=== PATIENT | male | born 1935 | race American Indian/Alaskan Native ===

== ENCOUNTER 2019-08-05 18:21 | Emergency (ER) | payer MEDICARE ==
--- NOTE | 2019-08-05 18:49 | Emergency Department Report ---
Blank Doc - Documentation Documentation: 83-year-old male that presents with SOB and CP. This initial assessment/diagnostic orders/clinical plan/treatment(s) is/are subject to change based on patient's health status, clinical progression and re- assessment by fellow clinical providers in the ED. Further treatment and workup at subsequent clinical providers discretion. Patient/guardians urged not to elope from the ED as their condition may be serious if not clinically assessed and managed. Initial orders include: 1- Patient sent to MAIN ED for further evaluation and treatment 2- labs 3- EKG 4- CXR
--- NOTE | 2019-08-05 19:48 | XRay Report ---
CHEST PA AND LATERAL VIEWS INDICATION: Chest Pain. COMPARISON: None FINDINGS: Support devices: None Heart: Normal Lungs/Pleura: Lungs are hyperinflated, consistent with emphysema. Mild parenchymal scarring but no ac darrell superimposed disease. No pleural fluid. IMPRESSION: 1. Chronic lung disease but no acute superimposed disease. Signer Name: Santiago Riley MD Signed: 08/05/2019 7:44 PM Workstation Name: [id number]
[2019-08-05 20:03] LABS: Basophils % (Auto) 0.9 % (0.0-1.8); Eosinophils # (Auto) 0.1 K/mm3 (0.0-0.4); Hemoglobin 13.2 gm/dl (11.8-15.2); Lymphocytes # (Auto) 0.7 K/mm3 (1.2-5.4); Lymphocytes % (Auto) 29.3 % (13.4-35.0); Mean Corpuscular HGB Conc 34 % (32-34); Mean Corpuscular Volume 86 fl (84-94); Monocytes # (Auto) 0.3 K/mm3 (0.0-0.8); Monocytes % (Auto) 13.4 % (0.0-7.3); Platelet Count 193 K/mm3 (140-440); Red Blood Count 4.54 M/mm3 (3.65-5.03); Red Cell Distribution Width 14.8 % (13.2-15.2)
[2019-08-05 20:07] LABS: Alanine Aminotransferase 10 units/L (7-56); BUN/Creatinine Ratio 19; Blood Urea Nitrogen 13 mg/dL (9-20); Calcium 9.3 mg/dL (8.4-10.2); Hemolysis Index 8
[2019-08-05] MEDS ORDERED: IPRATROPIUM/ALBUTEROL SULFATE 3 ML AMPUL.NEB IH ONE (20:23)
[2019-08-05 20:24] LABS: INR 0.96 (0.87-1.13)
[2019-08-05 20:25] LABS: Partial Thromboplastin Time 31.3 Sec. (24.2-36.6)
[2019-08-05] MEDS ORDERED: POTASSIUM CHLORIDE ER 20 MEQ TAB PO ONE (20:35)
--- NOTE | 2019-08-05 20:35 | Emergency Department Report ---
ED Shortness of Breath HPI - General Chief Complaint: Dyspnea/Respdistress Stated Complaint: COPD Time Seen by Provider: 08/05/19 18:48 Source: patient, family Mode of arrival: Ambulatory Limitations: No Limitations - History of Present Illness Initial Comments: 83-year-old male the past medical history of COPD not on home oxygen, hypertension, prostate cancer currently in remission presents to the hospital complaining of shortness breath or chest pain. Patient is recently prescribed a nebulizer machine but his doctor forgot to prescribed the bronchodilators as well. She has chronic progressive memory problems and is currently being evaluated for possible dementia. Patient is oriented to self, place, but not to year. He states he feels fine now. His daughter says that prior to arrival he complained of shortness of breath and some chest pain which have both since resolved. Patient also has had increased urinary frequency for the past 3 days without dysuria or pain. PMD: Dr. Alina Maza - Related Data Previous Rx's Medication Instructions Recorded Last Taken Type ALBUTEROL Inhaler (OR & NICU) 2 puff IH QID PRN #8.5 gram 08/05/19 Unknown Rx [ProAir HFA Inhaler] ALBUTEROL NEB's [Proventil 0.083% 2.5 mg IH TID PRN #30 neb 08/05/19 Unknown Rx NEBS] Inhaler, Assist Devices [Space 1 each MC PRN PRN #1 spacer 08/05/19 Unknown Rx Chamber Plus] Ipratropium (Nf) [Atrovent] 2 puff IH Q6HR #1 inha 08/05/19 Unknown Rx Allergies Allergy/AdvReac Type Severity Reaction Status Date / Time Penicillins AdvReac Unknown Verified 08/05/19 18:25 ED Review of Systems ROS: Stated complaint: COPD Other details as noted in HPI Comment: All other systems reviewed and negative ED Past Medical Hx - Past Medical History Hx Hypertension: Yes Hx of Cancer: Yes (PROSTATE) Hx COPD: Yes - Surgical History Additional Surgical History: PROSTATE - Social History Smoking Status: Former Smoker Substance Use Type: None - Medications Home Medications: Home Medications Medication Instructions Recorded Confirmed Last Taken Type ALBUTEROL Inhaler (OR & NICU) 2 puff IH QID PRN #8.5 gram 08/05/19 Unknown Rx [ProAir HFA Inhaler] ALBUTEROL NEB's [Proventil 0.083% 2.5 mg IH TID PRN #30 neb 08/05/19 Unknown Rx NEBS] Inhaler, Assist Devices [Space 1 each MC PRN PRN #1 spacer 08/05/19 Unknown Rx Chamber Plus] Ipratropium (Nf) [Atrovent] 2 puff IH Q6HR #1 inha 08/05/19 Unknown Rx ED Physical Exam - General Limitations: No Limitations - Other Other exam information: General: No acute distress Head: Atraumatic Eyes: normal appearance ENT: Moist mucous membranes Neck: Normal appearance, no midline tenderness Chest: Clear to auscultation bilaterally CV: Regular rate and rhythm Abdomen: Soft, normal bowel sounds, nontender, nondistended, no rebound or guarding Back: Normal inspection Extremity: Normal inspection infection, full range of motion, mild lower e xtremity edema Neuro: Alert O x 3, no facial asymmetry, speech clear, no gross motor sensory deficit Psych: Appropriate behavior Skin: No rash ED Course Vital Signs 08/05/19 08/05/19 08/05/19 18:38 20:30 20:42 Temperature 98.2 F 97.7 F Pulse Rate 93 H 87 Pulse Rate [ 95 H Bilateral Throughout] Respiratory 16 26 H Rate Respiratory 20 Rate [Bilateral Throughout] Blood Pressure 147/94 131/80 Blood Pressure 148/60 [Left] O2 Sat by Pulse 97 98 Oximetry 08/05/19 08/05/19 08/05/19 21:00 21:31 22:00 Temperature Pulse Rate 83 88 74 Pulse Rate [ Bilateral Throughout] Respiratory 17 19 16 Rate Respiratory Rate [Bilateral Throughout] Blood Pressure 145/70 152/74 141/69 Blood Pressure [Left] O2 Sat by Pulse 100 Oximetry 08/05/19 22:31 Temperature Pulse Rate 71 Pulse Rate [ Bilateral Throughout] Respiratory 15 Rate Respiratory Rate [Bilateral Throughout] Blood Pressure 120/60 Blood Pressure [Left] O2 Sat by Pulse Oximetry ED Medical Decision Making - Lab Data Result diagrams: 08/05/19 19:31 08/05/19 19:31 Lab Results 08/05/19 08/05/19 08/05/19 Range/Units 19:31 19:31 19:31 WBC 2.5 L (4.5-11.0) K/mm3 RBC 4.54 (3.65-5.03) M/mm3 Hgb 13.2 (11.8-15.2) gm/dl Hct 39.0 (35.5-45.6) % MCV 86 (84-94) fl MCH 29 (28-32) pg MCHC 34 (32-34) % RDW 14.8 (13.2-15.2) % Plt Count 193 (140-440) K/mm3 Lymph % (Auto) 29.3 (13.4-35.0) % Trinity % (Auto) 13.4 H (0.0-7.3) % Eos % (Auto) 5.0 H (0.0-4.3) % Baso % (Auto) 0.9 (0.0-1.8) % Lymph # 0.7 L (1.2-5.4) K/mm3 Trinity # 0.3 (0.0-0.8) K/mm3 Eos # 0.1 (0.0-0.4) K/mm3 Baso # 0.0 (0.0-0.1) K/mm3 Seg Neutrophils % 51.4 (40.0-70.0) % Seg Neutrophils # 1.3 L (1.8-7.7) K/mm3 PT 12.9 (12.2-14.9) Sec. INR 0.96 (0.87-1.13) APTT 31.3 (24.2-36.6) Sec. Sodium 139 (137-145) mmol/L Potassium 3.5 L (3.6-5.0) mmol/L Chloride 99.5 (98-107) mmol/L Carbon Dioxide 26 (22-30) mmol/L Anion Gap 17 mmol/L BUN 13 (9-20) mg/dL Creatinine 0.7 L (0.8-1.5) mg/dL Estimated GFR > 60 ml/min BUN/Creatinine Ratio 19 % Glucose 99 (75-100) mg/dL Calcium 9.3 (8.4-10.2) mg/dL Total Bilirubin 0.60 (0.1-1.2) mg/dL AST 21 (5-40) units/L ALT 10 (7-56) units/L Alkaline Phosphatase 57 (35-129) units/L Troponin T < 0.010 (0.00-0.029) ng/mL Total Protein 7.4 (6.3-8.2) g/dL Albumin 4.0 (3.9-5) g/dL Albumin/Globulin Ratio 1.2 % Urine Color (Yellow) Urine Turbidity (Clear) Urine pH (5.0-7.0) Ur Specific [place] (1.003-1.030) Urine Protein (Negative) mg/dL Urine Glucose (UA) (Negative) mg/dL Urine Ketones (Negative) mg/dL Urine Blood (Negative) Urine Nitrite (Negative) Urine Bilirubin (Negative) Urine Urobilinogen (<2.0) mg/dL Ur Leukocyte Esterase (Negative) Urine WBC (Auto) (0.0-6.0) /HPF Urine RBC (Auto) (0.0-6.0) /HPF U Epithel Cells (Auto) (0-13.0) /HPF Urine Mucus /HPF 08/05/19 08/05/19 Range/Units 20:29 21:21 WBC (4.5-11.0) K/mm3 RBC (3.65-5.03) M/mm3 Hgb (11.8-15.2) gm/dl Hct (35.5-45.6) % MCV (84-94) fl MCH (28-32) pg MCHC (32-34) % RDW (13.2-15.2) % Plt Count (140-440) K/mm3 Lymph % (Auto) (13.4-35.0) % Trinity % (Auto) (0.0-7.3) % Eos % (Auto) (0.0-4.3) % Baso % (Auto) (0.0-1.8) % Lymph # (1.2-5.4) K/mm3 Trinity # (0.0-0.8) K/mm3 Eos # (0.0-0.4) K/mm3 Baso # (0.0-0.1) K/mm3 Seg Neutrophils % (40.0-70.0) % Seg Neutrophils # (1.8-7.7) K/mm3 PT (12.2-14.9) Sec. INR (0.87-1.13) APTT (24.2-36.6) Sec. Sodium (137-145) mmol/L Potassium (3.6-5.0) mmol/L Chloride (98-107) mmol/L Carbon Dioxide (22-30) mmol/L Anion Gap mmol/L BUN (9-20) mg/dL Creatinine (0.8-1.5) mg/dL Estimated GFR ml/min BUN/Creatinine Ratio % Glucose (75-100) mg/dL Calcium (8.4-10.2) mg/dL Total Bilirubin (0.1-1.2) mg/dL AST (5-40) units/L ALT (7-56) units/L Alkaline Phosphatase (35-129) units/L Troponin T < 0.010 (0.00-0.029) ng/mL Total Protein (6.3-8.2) g/dL Albumin (3.9-5) g/dL Albumin/Globulin Ratio % Urine Color Yellow (Yellow) Urine Turbidity Clear (Clear) Urine pH 5.0 (5.0-7.0) Ur Specific [place] 1.016 (1.003-1.030) Urine Protein 30 mg/dl (Negative) mg/dL Urine Glucose (UA) Neg (Negative) mg/dL Urine Ketones Neg (Negative) mg/dL Urine Blood Lg (Negative) Urine Nitrite Neg (Negative) Urine Bilirubin Neg (Negative) Urine Urobilinogen < 2.0 (<2.0) mg/dL Ur Leukocyte Esterase Neg (Negative) Urine WBC (Auto) 2.0 (0.0-6.0) /HPF Urine RBC (Auto) 11.0 (0.0-6.0) /HPF U Epithel Cells (Auto) 1.0 (0-13.0) /HPF Urine Mucus Few /HPF - EKG Data -: EKG Interpreted by [facility] EKG shows normal: sinus rhythm, ST-T waves (no stemi) Rate: normal (99) - EKG Data 08/05/19 21:18 repeat ekg no acute changes - Radiology Data Radiology results: report reviewed CHEST PA AND LATERAL VIEWS INDICATION: Chest Pain. COMPARISON: None FINDINGS: Support devices: None Heart: Normal Lungs/Pleura: Lungs are hyperinflated, consistent with emphysema. Mild parenchymal scarring but no acute superimposed disease. No pleural fluid. IMPRESSION: 1. Chronic lung disease but no acute superimposed disease. - Medical Decision Making Patient has been pain-free during his entire ED stay. Troponin negative 2 with unchanged EKG. Patient did receive 1 duoneb while in the department. during observation. Patient is asymptomatic. - Differential Diagnosis CBD, AR, pneumonia, pneumothorax Critical Care Time: No Critical care attestation.: If time is entered above; I have spent that time in minutes in the direct care of this critically ill patient, excluding procedure time. ED Disposition Clinical Impression: COPD with emphysema, Microscopic hematuria Disposition: TO HOME OR SELFCARE Is pt being admited?: No Condition: Stable Instructions: Emphysema (ED), Acute Hematuria (ED) Additional Instructions: Take the medication as prescribed. Follow-up with your doctor or doctor/clinic provided. Return if symptoms worsen as indicated by your discharge instructions. Take the copy of the results provided to your doctor for follow- up. Prescriptions: Ipratropium (Nf) [Atrovent] 2 puff IH Q6HR #1 inha ALBUTEROL Inhaler (OR & NICU) [ProAir HFA Inhaler] 2 puff IH QID PRN #8.5 gram PRN Reason: Shortness Of Breath ALBUTEROL NEB's [Proventil 0.083% NEBS] 2.5 mg IH TID PRN #30 neb PRN Reason: Wheezing Inhaler, Assist Devices [Space Chamber Plus] 1 each MC PRN PRN #1 spacer PRN Reason: Shortness Of Breath Referrals: your, doctor [Other] - 3-5 Days CHAYITO MONTALVO MD [Staff Physician] - 3-5 Days (urology) Time of Disposition: 22:59
[2019-08-05 20:45] LABS: Bilirubin,Urine NEG (Negative); Blood,Urine LG (Negative); Color,Urine Yellow (Yellow); Mucus,Urine FEW /HPF; Urobilinogen,Urine < 2.0 mg/dL (<2.0)
[2019-08-05 23:07] VITALS: BP 125/59
== END 2019-08-05 23:40 | disposition home or self-care (01) ==
LOC: ED 18:21
DX: J43.9 Emphysema, unspecified (principal); R31.29 Other microscopic hematuria; Z85.46 Personal history of malignant neoplasm of prostate; Z87.891 Personal history of nicotine dependence; Z79.899 Other long term (current) drug therapy; Z88.0 Allergy status to penicillin
CPT/HCPCS: 36415; 71046; 80053; 81001; 84484; 85025; 85610; 85730; 93005; 93010; 94640; 94644

== ENCOUNTER 2019-11-04 23:46 | Emergency (ER) | payer MEDICARE ==
[2019-11-05 01:26] LABS: Basophils % (Auto) 0.3 % (0.0-1.8); Eosinophils # (Auto) 0.1 K/mm3 (0.0-0.4); Eosinophils % (Auto) 4.3 % (0.0-4.3); Hemoglobin 12.9 gm/dl (11.8-15.2); Lymphocytes # (Auto) 0.8 K/mm3 (1.2-5.4); Mean Corpuscular HGB Conc 32 % (32-34); Mean Corpuscular Volume 88 fl (84-94); Monocytes # (Auto) 0.3 K/mm3 (0.0-0.8); Monocytes % (Auto) 10.4 % (0.0-7.3); Platelet Count 177 K/mm3 (140-440); Red Blood Count 4.54 M/mm3 (3.65-5.03); Red Cell Distribution Width 14.8 % (13.2-15.2)
[2019-11-05 01:48] LABS: Alanine Aminotransferase 17 units/L (7-56); Albumin 3.7 g/dL (3.9-5); BUN/Creatinine Ratio 20; Blood Urea Nitrogen 16 mg/dL (9-20); Calcium 9.3 mg/dL (8.4-10.2); Hemolysis Index 45
--- NOTE | 2019-11-05 03:15 | Emergency Department Report ---
ED Psych HPI - General Chief Complaint: Abdominal Pain Stated Complaint: MH EVALUATION Time Seen by Provider: 11/05/19 03:08 Source: patient, EMS Mode of arrival: Ambulatory Limitations: Altered Mental Status, Physical Limitation - History of Present Illness Initial Comments: Patient is an 84-year-old male that presents emergency room with complaints wa nting to be admitted. Patient states his niece is stealing from him. Patient states she is taking his money. Patient states that his is taking advantage of him. Patient states that people are out to get him. Patient denies abdominal pain. Patient states the only pain he is having is mental pain because he had to wait to be admitted into the hospital. Report received from EMS and EMS report states that the patient's daughter sent him here for a mental evaluation due to acting out and differently. Patient has a history of dementia. Patient is currently alert and oriented x3 -: Sudden Associated Psychiatric Symptoms: racing thoughts, delusions History of same: Yes Quality: constant Improves With: none Worsens With: none Associated Symptoms: denies other symptoms Treatments Prior to Arrival: none - Related Data Previous Rx's Medication Instructions Recorded Last Taken Type ALBUTEROL NEB's [Proventil 0.083% 2.5 mg IH TID PRN #30 neb 08/05/19 Unknown Rx NEBS] Albuterol INH(or & Nicu Only) 2 puff IH QID PRN #8.5 gram 08/05/19 Unknown Rx [ProAir HFA Inhaler] Inhaler, Assist Devices [Space 1 each MC PRN PRN #1 spacer 08/05/19 Unknown Rx Chamber Plus] Ipratropium (Nf) [Atrovent] 2 puff IH Q6HR #1 inha 08/05/19 Unknown Rx Allergies Allergy/AdvReac Type Severity Reaction Status Date / Time Penicillins AdvReac Unknown Verified 08/05/19 18:25 ED Review of Systems ROS: Stated complaint: MH EVALUATION Other details as noted in HPI Constitutional: denies: chills, fever Eyes: denies: eye pain, eye discharge, vision change ENT: denies: ear pain, throat pain Respiratory: denies: cough, shortness of breath, wheezing Cardiovascular: denies: chest pain, palpitations Endocrine: no symptoms reported Gastrointestinal: denies: abdominal pain, nausea, diarrhea Genitourinary: denies: urgency, dysuria Musculoskeletal: denies: back pain, joint swelling, arthralgia Skin: denies: rash, lesions Neurological: denies: headache, weakness, paresthesias Psychiatric: denies: anxiety, depression Hematological/Lymphatic: denies: easy bleeding, easy bruising ED Past Medical Hx - Past Medical History Previous Medical History?: Yes Hx Hypertension: Yes Hx COPD: Yes Hx Dementia: Yes - Surgical History Past Surgical History?: Yes Additional Surgical History: PROSTATE - Family History Family history: no significant - Social History Smoking Status: Never Smoker Substance Use Type: None - Medications Home Medications: Home Medications Medication Instructions Recorded Confirmed Last Taken Type ALBUTEROL NEB's [Proventil 0.083% 2.5 mg IH TID PRN #30 neb 08/05/19 Unknown Rx NEBS] Albuterol INH(or & Nicu Only) 2 puff IH QID PRN #8.5 gram 08/05/19 Unknown Rx [ProAir HFA Inhaler] Inhaler, Assist Devices [Space 1 each MC PRN PRN #1 spacer 08/05/19 Unknown Rx Chamber Plus] Ipratropium (Nf) [Atrovent] 2 puff IH Q6HR #1 inha 08/05/19 Unknown Rx ED Physical Exam - General Limitations: Altered Mental Status, Other General appearance: alert, in no apparent distress - Head Head exam: Present: atraumatic, normocephalic - Eye Eye exam: Present: normal appearance - ENT ENT exam: Present: mucous membranes moist - Neck Neck exam: Present: normal inspection - Respiratory Respiratory exam: Present: normal lung sounds bilaterally. Absent: respiratory distress - Cardiovascular Cardiovascular Exam: Present: regular rate, normal rhythm. Absent: systolic murmur, diastolic murmur, rubs, gallop - GI/Abdominal GI/Abdominal exam: Present: soft, normal bowel sounds - Rectal Rectal exam: Present: deferred - Extremities Exam Extremities exam: Present: normal inspection - Back Exam Back exam: Present: normal inspection - Neurological Exam Neurological exam: Present: alert, oriented X3 - Psychiatric Psychiatric exam: Present: flat affect - Expanded Psychiatric Exam Expanded Focused psych exam: Present: pressured speech, internal stimuli, delusional, paranoid - Skin Skin exam: Present: warm, dry, intact, normal color. Absent: rash ED Course Vital Signs 11/04/19 11/05/19 11/05/19 23:53 04:09 08:57 Temperature 97.9 F 98.5 F Pulse Rate 87 80 Respiratory 18 18 17 Rate Blood Pressure 142/74 Blood Pressure 125/58 [Left] O2 Sat by Pulse 98 99 Oximetry - Reevaluation(s) Reevaluation #1: I discussed all results and clinical findings with patient. I discussed plan of care with patient. Patient agrees with plan of care. Patient is stable for discharge to the [facility] once the patient is evaluated by the mental health team and mental health team has prepared admission into the [facility] 11/05/19 04:45 Reevaluation #2: Patient is very agitated and restless. Patient not able to be redirected. Patient will be given 10 mg of Geodon IM. 11/05/19 05:45 ED Medical Decision Making - Lab Data Result diagrams: 11/05/19 01:01 11/05/19 01:01 - Medical Decision Making Patient is a 84-year-old male that presents emergency room with complaints of needing to be admitted and possible acute psychosis. Patient on examination found to have delusions and paranoia. Patient denies any physical complaints. Patient's labs were done and were unremarkable. Patient is medically cleared. Patient towards the end of his ER stay became agitated and patient was given Geodon and responded well. Patient medically cleared and stable for admission into our geriatric psych floor. Patient was discharged from the ER and then acc epted directly into the geriatric psych floor. - Differential Diagnosis Acute psychosis, dementia with behavioral disorder, delusions, paranoia Critical care attestation.: If time is entered above; I have spent that time in minutes in the direct care of this critically ill patient, excluding procedure time. ED Disposition Clinical Impression: Agitation, Acute psychosis, Paranoia, Delusions Disposition: [id number] PSY HOSP/PSY UNIT Is pt being admited?: No Does the pt Need Aspirin: No Condition: Stable Additional Instructions: Patient to be discharged from the ER and patient to be directly admitted into the geriatric psych floor. Referrals: JOSE R BLANCO MD [Primary Care Provider] - 2-3 Days Time of Disposition: 05:48
[2019-11-05 05:21] LABS: Bilirubin,Urine NEG (Negative); Blood,Urine SM (Negative); Color,Urine Yellow (Yellow); Mucus,Urine FEW /HPF; Urobilinogen,Urine < 2.0 mg/dL (<2.0)
[2019-11-05] MEDS ORDERED: ZIPRASIDONE MESYLATE 20 MG VIAL IM ONE (05:44)
[2019-11-05 06:28] LABS: Amphetamine Screen,Urine PRESUMPTIVE NEGATIVE; Benzodiazepines Screen,Urine PRESUMPTIVE NEGATIVE; Cannabinoid Screen,Urine PRESUMPTIVE NEGATIVE; Cocaine Screen,Urine PRESUMPTIVE NEGATIVE; Methadone Screen,Urine PRESUMPTIVE NEGATIVE; Opiate Screen,Urine PRESUMPTIVE NEGATIVE
[2019-11-05 08:59] VITALS: BP 125/58
== END 2019-11-05 14:02 ==
LOC: ED 23:46
DX: F23 Brief psychotic disorder (principal); F22 Delusional disorders
CPT/HCPCS: 36415; 80053; 80307; 80320; 81001; 85025; 99284; G0480

== ENCOUNTER 2019-11-08 20:19 | Emergency (ER) | payer MEDICARE ==
[2019-11-08] MEDS ORDERED: ALBUTEROL 8.5 GM INHALATION IH PRN (21:39)
[2019-11-08] MEDS ORDERED: HALOPERIDOL LACTATE 5 MG/1 ML INJ IM PRN (21:40)
[2019-11-08] MEDS ORDERED: LORazepam 2 MG/ML VIAL IM PRN (21:40)
--- NOTE | 2019-11-08 21:42 | Emergency Department Report ---
ED General Adult HPI - General Chief complaint: Medical Clearance Stated complaint: DEMENTIA Time Seen by Provider: 11/08/19 21:05 Source: patient, family, EMS ( EMS documentation not available at time of chart dictation ), RN notes reviewed, old records reviewed Mode of arrival: Stretcher Limitations: Other (The patient is demented) - History of Present Illness Initial comments: The patient is an 84-year-old gentleman. The patient is not known to myself previously. The patient has no complaints at this time. History is obtained by speaking to his daughter, Ms. Reina Lobo; [phone] The patient is an 84-year-old gentleman with a history of COPD, and dementia. He was recently admitted to our fifth floor psychiatric unit for dementia with behavioral disturbances. He was discharged home. As per his daughter, he has been acting erratically, making comments about suicidality, running out, and she is not able to take care of him. There is no trauma that she is aware of, no fever, nausea, vomiting, urinary symptoms or new cough. The patient was medically cleared in this department a few days ago. The patient's daughter reports that initially she was not curious or interested in a assisted, but now she is interested in a assisted, because she cannot care for her father. The patient himself denies medical complaints and physical pain at this time. He does not make any comments about homicidality or suicidality or warning to overdose. -: days(s) Severity scale (0 -10): 0 Consistency: intermittent Improves with: none Worsens with: none - Related Data Home Medications Medication Instructions Recorded Confirmed Last Taken Amantadine 10 mg PO DAILY 11/06/19 11/06/19 1 Day Ago ~11/05/19 10 Dulcolax tab 100 mg PO DAILY 11/06/19 11/06/19 1 Day Ago ~11/05/19 100 mg Melatonin 3 mg PO QHS 11/06/19 11/06/19 1 Day Ago ~11/05/19 3 Spiriva Respimat 2.5 mg INNOSTRIL DAILY 11/06/19 11/06/19 1 Day Ago ~11/05/19 2.5 Symbicort 160-4.5 Mcg Inhaler 4.5 mcg INNOSTRIL BID 11/06/19 11/06/19 1 Day Ago ~11/05/19 2 puffs Vitamin E Cap 1,000 units PO DAILY MDD 1000 units 11/06/19 11/06/19 1 Day Ago ~11/05/19 1000 units Previous Rx's Medication Instructions Recorded Last Taken Type ALBUTEROL NEB's [Proventil 0.083% 2.5 mg IH TID PRN #30 neb 08/05/19 Unknown Rx NEBS] Albuterol INH(or & Nicu Only) 2 puff IH QID PRN #8.5 gram 08/05/19 Unknown Rx [ProAir HFA Inhaler] Inhaler, Assist Devices [Space 1 each MC PRN PRN #1 spacer 08/05/19 Unknown Rx Chamber Plus] Ipratropium (Nf) [Atrovent HFA 2 puff IH Q6HR #1 inha 08/05/19 Unknown Rx 17MCG/PUFF] Allergies Allergy/AdvReac Type Severity Reaction Status Date / Time Penicillins AdvReac Unknown Verified 08/05/19 18:25 ED Review of Systems ROS: Stated complaint: DEMENTIA Other details as noted in HPI Comment: As per daughter Constitutional: denies: fever Eyes: denies: vision change Respiratory: see HPI Cardiovascular: as per HPI. denies: syncope Gastrointestinal: as per HPI Genitourinary: as per HPI Musculoskeletal: as per HPI Skin: as per HPI Neurological: as per HPI Psychiatric: as per HPI Hematological/Lymphatic: as per HPI ED Past Medical Hx - Past Medical History Hx Hypertension: Yes Hx COPD: Yes Hx Dementia: Yes - Surgical History Additional Surgical History: PROSTATE - Social History Smoking Status: Never Smoker Substance Use Type: None - Medications Home Medications: Home Medications Medication Instructions Recorded Confirmed Last Taken Type ALBUTEROL NEB's [Proventil 0.083% 2.5 mg IH TID PRN #30 neb 08/05/19 11/08/19 Unknown Rx NEBS] Albuterol INH(or & Nicu Only) 2 puff IH QID PRN #8.5 gram 08/05/19 11/08/19 Unknown Rx [ProAir HFA Inhaler] Inhaler, Assist Devices [Space 1 each MC PRN PRN #1 spacer 08/05/19 11/08/19 Unknown Rx Chamber Plus] Ipratropium (Nf) [Atrovent HFA 2 puff IH Q6HR #1 inha 08/05/19 11/08/19 Unknown Rx 17MCG/PUFF] Amantadine 10 mg PO DAILY 11/06/19 11/06/19 1 Day Ago History ~11/05/19 10 Dulcolax tab 100 mg PO DAILY 11/06/19 11/06/19 1 Day Ago History ~11/05/19 100 mg Melatonin 3 mg PO QHS 11/06/19 11/06/19 1 Day Ago History ~11/05/19 3 Spiriva Respimat 2.5 mg INNOSTRIL DAILY 11/06/19 11/06/19 1 Day Ago History ~11/05/19 2.5 Symbicort 160-4.5 Mcg Inhaler 4.5 mcg INNOSTRIL BID 11/06/19 11/06/19 1 Day Ago History ~11/05/19 2 puffs Vitamin E Cap 1,000 units PO DAILY MDD 1000 units 11/06/19 11/06/19 1 Day Ago History ~11/05/19 1000 units ED Physical Exam - General Limitations: Other (The patient is demented. The patient is a poor historian) General appearance: alert, in no apparent distress - Head Head exam: Present: atraumatic, normocephalic - Eye Eye exam: Present: normal appearance, EOMI, other (Visual acuity is intact to finger counting at a close distance). Absent: nystagmus - ENT ENT exam: Present: normal exam, normal orophraynx, mucous membranes moist, normal external ear exam - Neck Neck exam: Present: normal inspection, full ROM. Absent: tenderness, meningismus - Respiratory Respiratory exam: Present: normal lung sounds bilaterally. Absent: respiratory distress - Cardiovascular Cardiovascular Exam: Present: regular rate, normal rhythm, normal heart sounds. Absent: bradycardia, tachycardia, irregular rhythm, systolic murmur, diastolic murmur, rubs, gallop - GI/Abdominal GI/Abdominal exam: Present: soft. Absent: distended, tenderness, guarding, rebound, rigid, pulsatile mass - Rectal Rectal exam: Present: deferred - Extremities Exam Extremities exam: Present: normal inspection, full ROM, other (2+ pulses noted in the bilateral upper and lower extremities. There is no palpable cord. negative Homans sign. Muscular compartments are soft. The pelvis is stable.). Absent: pedal edema, calf tenderness - Back Exam Back exam: Present: normal inspection, full ROM. Absent: tenderness, CVA tenderness (R), CVA tenderness (L), paraspinal tenderness, vertebral tenderness - Neurological Exam Neurological exam: Present: alert, other (There is no facial droop. The tongue is midline. Extraocular movements are intact bilaterally. There is 5 out of 5 strength in bilateral upper and lower extremities. Sensation is intact to light touch bilateral upper and lower extremities. ). Absent: motor sensory deficit - Psychiatric Psychiatric exam: Present: flat affect - Skin Skin exam: Present: warm, dry, intact, normal color. Absent: rash ED Course Vital Signs 11/08/19 11/08/19 11/09/19 20:47 22:23 07:30 Temperature 97.4 F L Pulse Rate 75 84 Respiratory 20 1 L 20 Rate Blood Pressure 115/62 132/69 [Left] O2 Sat by Pulse 97 95 Oximetry 11/09/19 12:30 Temperature 98.1 F Pulse Rate 84 Respiratory 20 Rate Blood Pressure 130/71 [Left] O2 Sat by Pulse 96 Oximetry - Reevaluation(s) Reevaluation #1: 11/08/19 21:51 Differential diagnosis, including but not limited to: Dementia, natural history of, medical clearance Assessment and plan: 84-year-old gentleman who is pleasant, calm and cooperative at this time, awake, protecting his airway, moving 4 extremities, with an unremarkable physical examination. He has not been physically agitated combative or belligerent and is made no complaints of homicidality or suicidality. Based off of the history obtained from his daughter, we suspect underlying dementia and natural history thereof. Appropriate screening laboratory studies, EKG, urinalysis, noncontrast CT scan of the brain will be obtained. A case management consultation and psychiatric consultation have also been requested. Explained risks of ER stay overnight to the patient's daughter, including severe illness and disease from coronavirus, and she verbalizes understanding. However, she reports that she has young children/grandchildren at home, and she is not able to care for young children at her father simultaneously. She therefore gives verbal informed consent for the patient to remain in the department overnight. Once initial diagnostics have resulted, if unremarkable, which we anticipate, will defer management to psychiatry and case management. The daughter also indicates that she is speaking to local nursing homes about placement and insurance options. Reevaluation #2: 11/09/19 18:59 Patient seen and cleared by psychiatry. Outpatient arrangements for follow-up have been made by case management. Family has endorsed to case management that they feel comfortable to take the patient home. Laboratory studies were unre markable, patient observed for 24 hours without clinical decompensation. ED Medical Decision Making - Lab Data Result diagrams: 11/08/19 21:22 11/08/19 21:22 Vital Signs 11/08/19 20:47 Temperature 97.4 F L Pulse Rate 75 Respiratory 20 Rate Blood Pressure 115/62 [Left] O2 Sat by Pulse 97 Oximetry Vital Signs 11/08/19 20:47 Temperature 97.4 F L Pulse Rate 75 Respiratory 20 Rate Blood Pressure 115/62 [Left] O2 Sat by Pulse 97 Oximetry Lab Results 11/08/19 11/08/19 Range/Units 21:22 21:22 WBC 4.0 L (4.5-11.0) K/mm3 RBC 4.15 (3.65-5.03) M/mm3 Hgb 11.9 (11.8-15.2) gm/dl Hct 36.5 (35.5-45.6) % MCV 88 (84-94) fl MCH 29 (28-32) pg MCHC 33 (32-34) % RDW 14.6 (13.2-15.2) % Plt Count 150 (140-440) K/mm3 Sodium 140 (137-145) mmol/L Potassium 3.9 (3.6-5.0) mmol/L Chloride 101.2 (98-107) mmol/L Carbon Dioxide 26 (22-30) mmol/L Anion Gap 17 mmol/L BUN 24 H (9-20) mg/dL Creatinine 1.0 (0.8-1.5) mg/dL Estimated GFR > 60 ml/min BUN/Creatinine Ratio 24 % Glucose 90 (75-100) mg/dL Calcium 9.2 (8.4-10.2) mg/dL - EKG Data -: EKG Interpreted by Sd EKG shows normal: sinus rhythm Rate: normal - EKG Data 11/08/19 21:50 No prior EKGs available for comparison. This is a sinus rhythm, 94 bpm, rightward axis deviation, atrial enlargement, low voltage in the high lateral leads, motion artifact, left ventricular hypertrophy, abnormal EKG, no endorsement of chest pain, the EKG is not consistent with a STEMI - Radiology Data Radiology results: pending, report reviewed, image reviewed interpreted by me: Noncontrast CT scan of the brain is grossly negative for acute pathology Noncontrast CT scan of the brain is negative for acute findings. Critical care attestation.: If time is entered above; I have spent that time in minutes in the direct care of this critically ill patient, excluding procedure time. ED Disposition Clinical Impression: Major neurocognitive disorder due to Alzheimer's disease, with behavioral disturbance Disposition: DC-01 TO HOME OR SELFCARE Is pt being admited?: No Does the pt Need Aspirin: No Condition: Stable Additional Instructions: Continue outpatient medications. Follow-up with the primary care doctor within the next 2 weeks. Return to the emergency room right away with new, worsened or different symptoms, or symptoms not present on the initial emergency room evaluation. Referrals: DONNA CARTWRIGHT MD [Primary Care Provider] - 3-5 Days
[2019-11-08] MEDS ORDERED: TIOTROPIUM InNostril SCH (21:45)
[2019-11-08 21:50] LABS: Hematocrit 36.5 % (35.5-45.6); Hemoglobin 11.9 gm/dl (11.8-15.2); Mean Corpuscular HGB Conc 33 % (32-34); Mean Corpuscular Volume 88 fl (84-94); Platelet Count 150 K/mm3 (140-440); Red Blood Count 4.15 M/mm3 (3.65-5.03); Red Cell Distribution Width 14.6 % (13.2-15.2)
[2019-11-08] MEDS ORDERED: ALBUTEROL 2.5 MG/3 ML NEBU IH PRN (21:58)
[2019-11-08] MEDS ORDERED: SYMBICORT InNostril SCH (22:00)
--- NOTE | 2019-11-08 22:10 | Cat Scan Report ---
CT head/brain wo con INDICATION / CLINICAL INFORMATION: 84 years Male; Disorganized behaviour, Altered Mental Status. TECHNIQUE: Routine CT head without contrast. All CT scans at this location are performed using CT dos e reduction for ALARA by means of automated exposure control. COMPARISON: None. FINDINGS: BRAIN / INTRACRANIAL CONTENTS: No acute hemorrhage, mass effect, midline shift, hydrocephalus, or acu te, large territorial infarct. Mild to moderate cerebral atrophy. Mild to moderate degree of hippocampal atrophy suggested bilateral ly. There are mild areas of decreased attenuation in the white matter of the cerebral hemispheres. These are nonspecific findings and may be related to microangiopathy (hypertension, diabetes, atheroscleros is), given the patient's age. It might be difficult to evaluate for small areas of ischemia without d iffusion imaging by MRI. CRANIOCERVICAL JUNCTION: No significant abnormality. ORBITS: No significant abnormality of visualized orbits. SINUSES / MASTOIDS: No significant abnormality the visualized paranasal sinuses or mastoid air cells. ADDITIONAL FINDINGS: Minimal atherosclerotic disease is seen in the anterior and posterior circulatio n. IMPRESSION: 1. No focal mass, hemorrhage, hydrocephalus, or acute, large territorial infarct. Signer Name: Miguel Hauser MD, III Signed: 11/08/2019 10:05 PM Workstation Name: [id number]
[2019-11-08 22:20] LABS: BUN/Creatinine Ratio 24; Blood Urea Nitrogen 24 mg/dL (9-20); Calcium 9.2 mg/dL (8.4-10.2); Hemolysis Index 6
[2019-11-08] MEDS ORDERED: MELATONIN 5 MG TAB PO SCH (23:00)
[2019-11-08 23:02] LABS: Bacteria,Urine 1+ /HPF (Negative); Bilirubin,Urine NEG (Negative); Blood,Urine MOD (Negative); Color,Urine Yellow (Yellow); Mucus,Urine FEW /HPF; Protein,Urine <15 mg/dL mg/dL (Negative); Urobilinogen,Urine < 2.0 mg/dL (<2.0)
[2019-11-09] MEDS ORDERED: NON-FORMULARY EACH (Ipratropium (Nf) 2 PUFF) IH SCH
[2019-11-09] MEDS ORDERED: IPRATROPIUM 0.02% NEBU 2.5 ML IH SCH (02:00)
[2019-11-09] MEDS ORDERED: ARFORMOTEROL 15 MCG/2 ML NEBU IH SCH (08:00)
[2019-11-09] MEDS ORDERED: BUDESONIDE 0.5 MG/2 ML NEBU IH SCH (08:00)
[2019-11-09] MEDS ORDERED: TOCOPHEROL 200 UNIT CAP PO SCH (10:00)
--- NOTE | 2019-11-09 11:24 | Consultation ---
History of Present Illness - Reason for Consult Consult date: 11/09/19 Reason for consult: Psych eval Requesting physician: CANDY SHELDON - Chief Complaint Chief complaint: 'Here to recover my car" - History of Present Psychiatric Illness History of Present Illness: The patient is an 84yo male with history of Dementia, COPD and HTN. The patient was discharged from the psychiatric mares yesterday with a diagnoses of Major neurocognitive disorder due to alzheimer's dementia with behavioral disturbance. He was brought back to the ED by his daughter because she is not able to take care of him. The patient is a poor historian. He states that he is here to recover his car. He describes his mood as good, denies SI/HI/AVH PAST PSYCHIATRIC HISTORY: Diagnoses: Dementia Suicide attempts or Self-harm behavior: Unknown Prior psychiatric hospitalizations: Unknown Substance Abuse history: No Previous psychiatric medications tried: Unknown Outpatient treatment: Unknown PAST MEDICAL HISTORY: HTN, COPD Family Psychiatric History None reported or documented SOCIAL HISTORY Marital Status: Living Arrangements: Alone Employment Status: Retired [employer] Access to guns/weapons: Patient denies Education: High School History of Abuse: No Legal History: No REVIEW OF SYSTEMS Constitutional: Negative for weight loss ENT: Negative for stridor Respiratory: Negative for cough or hemoptysis All other systems reviewed and are negative MSE Appearance: Wearing appropriate clothing. Good hygiene Behavior: Pleasant and cooperative. Mood: "Good" Affect: Congruent with stated mood Thought Process: Illogical Speech: Normal rate. Thought Content Harmfulness Denies SI/HI Hallucinations: patient denies Delusions: none elicited Consciousness: alert. 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 DISPOSITION: Per primary team, no indication for acute inpatient psychiatric hospitalization at this time LEGAL STATUS: Voluntary FOLLOW-UP: Will sign off Medications and Allergies Allergies Allergy/AdvReac Type Severity Reaction Status Date / Time Penicillins AdvReac Unknown Verified 08/05/19 18:25 Home Medications Medication Instructions Recorded Confirmed Last Taken Type ALBUTEROL NEB's [Proventil 0.083% 2.5 mg IH TID PRN #30 neb 08/05/19 11/08/19 U nknown Rx NEBS] Albuterol INH(or & Nicu Only) 2 puff IH QID PRN #8.5 gram 08/05/19 11/08/19 Unknown Rx [ProAir HFA Inhaler] Inhaler, Assist Devices [Space 1 each PRN PRN #1 spacer 08/05/19 11/08/19 Unknown Rx Chamber Plus] Ipratropium (Nf) [Atrovent HFA 2 puff IH Q6HR #1 inha 08/05/19 11/08/19 Unknown Rx 17MCG/PUFF] Amantadine 10 mg PO DAILY 11/06/19 11/06/19 1 Day Ago History ~11/05/19 10 Dulcolax tab 100 mg PO DAILY 11/06/19 11/06/19 1 Day Ago History ~11/05/19 100 mg Melatonin 3 mg PO QHS 11/06/19 11/06/19 1 Day Ago History ~11/05/19 3 Spiriva Respimat 2.5 mg INNOSTRIL DAILY 11/06/19 11/06/19 1 Day Ago History ~11/05/19 2.5 Symbicort 160-4.5 Mcg Inhaler 4.5 mcg INNOSTRIL BID 11/06/19 11/06/19 1 Day Ago History ~11/05/19 2 puffs Vitamin E Cap 1,000 units PO DAILY MDD 1000 units 11/06/19 11/06/19 1 Day Ago History ~11/05/19 1000 units Active Meds: Active Medications Albuterol (Proventil) 2.5 mg IH QIDRT PRN PRN Reason: Shortness Of Breath Amantadine HCl (Symmetrel) 100 mg PO QDAY [facility] Arformoterol Tartrate (Brovana Nebu) 15 mcg IH Q12HRT [facility] Bisacodyl (Dulcolax) 10 mg PO QDAY PRN PRN Reason: Laxative Effect Budesonide (Pulmicort) 0.5 mg IH Q12HRT [facility] Haloperidol Lactate (Haldol) 2.5 mg IM Q6HR PRN PRN Reason: Agitation Ipratropium [place] (Atrovent) 0.5 mg IH Q6HRT [facility] Last Admin: 11/09/19 02:30 Dose: Not Given Documented by: Lorazepam (Ativan) 2 mg IM Q4HR PRN PRN Reason: Agitation Melatonin (Melatonin) 5 mg PO QHS [facility] Last Admin: 11/08/19 22:40 Dose: 5 mg Documented by: Vitamin E (Vitamin E Cap) 1,000 unit PO QDAY [facility] Mental Status Exam - Vital signs Last Vital Signs Temp 97.4 F L 11/08/19 20:47 Pulse 75 11/08/19 20:47 Resp 1 L 11/08/19 22:23 BP 115/62 11/08/19 20:47 Pulse Ox 97 11/08/19 20:47 Results Result Diagrams: 11/08/19 21:22 11/08/19 21:22 Abnormal lab results 11/08/19 11/08/19 11/08/19 Range/Units 21:22 21:22 21:22 WBC 4.0 L (4.5-11.0) K/mm3 BUN 24 H (9-20) mg/dL Salicylates < 0.3 L (2.8-20.0) mg/dL Acetaminophen (10.0-30.0) ug/mL 11/08/19 Range/Units 21:22 WBC (4.5-11.0) K/mm3 BUN (9-20) mg/dL Salicylates (2.8-20.0) mg/dL Acetaminophen < 5.0 L (10.0-30.0) ug/mL All other labs normal.
[2019-11-09 13:15] VITALS: BP 130/71
[2019-11-09] MEDS ORDERED: DONEPEZIL 5 MG TAB PO SCH (22:00)
== END 2019-11-09 17:40 | disposition home or self-care (01) ==
LOC: ED 20:19
DX: F01.50 Vascular dementia, unspecified severity, without behavioral disturbance, psychotic disturbance, mood disturbance, and anxiety (principal); G30.9 Alzheimer's disease, unspecified; F02.81 Dementia in other diseases classified elsewhere, unspecified severity, with behavioral disturbance; I10 Essential (primary) hypertension; J44.9 Chronic obstructive pulmonary disease, unspecified
CPT/HCPCS: 36415; 70450; 80048; 80320; 81001; 84443; 85027; 93005; 93010; 99285; G0480

== ENCOUNTER 2020-05-24 04:37 | Emergency (ER) | payer MEDICARE ==
[2020-05-24] MEDS ORDERED: SODIUM CHLORIDE 0.9% 1000 ML 1,000 ML IV ONE (05:08)
[2020-05-24] MEDS ORDERED: IPRATROPIUM 0.02% NEBU 2.5 ML IH ONE ×2 (05:09→06:05)
[2020-05-24] MEDS ORDERED: ALBUTEROL 2.5 MG/3 ML NEBU IH ONE ×2 (05:09→06:05)
--- NOTE | 2020-05-24 05:48 | XRay Report ---
CHEST 1 VIEW INDICATION: Shortness of breath COMPARISON: 08/05/2017 FINDINGS: Support devices: None Heart: Normal Lungs/Pleura: Lungs are hyperinflated, consistent with emphysema. No definite acute superimposed dise ase. IMPRESSION: 1. COPD. No acute disease. Signer Name: Santiago Riley MD Signed: 05/24/2020 5:44 AM Workstation Name: [id number]
[2020-05-24 06:00] LABS: Eosinophils # (Auto) 0.2 K/mm3 (0.0-0.4); Eosinophils % (Auto) 6.8 % (0.0-4.3); Hematocrit 41.3 % (35.5-45.6); Hemoglobin 13.7 gm/dl (11.8-15.2); Lymphocytes # (Auto) 0.8 K/mm3 (1.2-5.4); Lymphocytes % (Auto) 22.7 % (13.4-35.0); Mean Corpuscular HGB Conc 33 % (32-34); Mean Corpuscular Volume 88 fl (84-94); Monocytes # (Auto) 0.1 K/mm3 (0.0-0.8); Monocytes % (Auto) 3.8 % (0.0-7.3); Platelet Count 164 K/mm3 (140-440); Red Blood Count 4.72 M/mm3 (3.65-5.03); Red Cell Distribution Width 14.7 % (13.2-15.2)
[2020-05-24] MEDS ORDERED: DOXYCYCLINE 100 MG CAP PO ONE (06:08)
[2020-05-24 06:36] LABS: BUN/Creatinine Ratio 14; Blood Urea Nitrogen 13 mg/dL (9-20); Calcium 9.5 mg/dL (8.4-10.2); Hemolysis Index 5
--- NOTE | 2020-05-24 07:01 | Emergency Department Report ---
ED Shortness of Breath HPI - General Chief Complaint: Dyspnea/Respdistress Stated Complaint: DIFF BREATHING Time Seen by Provider: 05/24/20 06:03 Source: patient, EMS, old records reviewed Mode of arrival: Stretcher Limitations: No Limitations - History of Present Illness Initial Comments: This is an 84-year-old male with history of COPD, dementia, hypertension who presents with shortness of breath. He has been using inhaler for 2 days. He has run out of steroid medicine. He received albuterol, magnesium, Solu-Medrol in route per EMS. Patient denies pain or discomfort at this time. Patient states that he receives care through the [facility]. According to treatment nurse in the ED, upon arrival patient had work of breathing with accessory muscle use. He has improved with treatment while in the emergency department. MD Complaint: shortness of breath -: Gradual, days(s) (2) Severity: severe Consistency: now resolved Improves With: bronchodilators Known History Of: COPD Associated Symptoms: denies other symptoms - Related Data Home Medications Medication Instructions Recorded Confirmed Last Taken Amantadine 10 mg PO DAILY 11/06/19 11/06/19 1 Day Ago ~11/05/19 10 Dulcolax tab 100 mg PO DAILY 11/06/19 11/06/19 1 Day Ago ~11/05/19 100 mg Melatonin 3 mg PO QHS 11/06/19 11/06/19 1 Day Ago ~11/05/19 3 Spiriva Respimat 2.5 mg INNOSTRIL DAILY 11/06/19 11/06/19 1 Day Ago ~11/05/19 2.5 Symbicort 160-4.5 Mcg Inhaler 4.5 mcg INNOSTRIL BID 11/06/19 11/06/19 1 Day Ago ~11/05/19 2 puffs Vitamin E Cap 1,000 units PO DAILY MDD 1000 units 11/06/19 11/06/19 1 Day Ago ~11/05/19 1000 units Previous Rx's Medication Instructions Recorded Last Taken Type ALBUTEROL NEB's [Proventil 0.083% 2.5 mg IH TID PRN #30 neb 08/05/19 Unknown Rx NEBS] Albuterol Mdi (or & Nicu Only) 2 puff IH QID PRN #8.5 gram 08/05/19 Unknown Rx [ProAir HFA Inhaler] Inhaler, Assist Devices [Space 1 each MC PRN PRN #1 spacer 08/05/19 Unknown Rx Chamber Plus] Ipratropium (Nf) [Atrovent HFA 2 puff IH Q6HR #1 inha 08/05/19 Unknown Rx 17MCG/PUFF] Budesonide/Formoterol Fumarate 2 inh IH BID #1 hfa.aer.ad 05/24/20 Unknown Rx [Symbicort 160-4.5 Mcg Inhaler] Doxycycline Hyclate [Doxycycline 100 mg PO Q12HR 7 Days #14 tab 05/24/20 Unknown Rx Hyclate TAB] Prednisone [predniSONE 5 mg (6-Day 5 mg PO .TAPER #1 tab.ds.pk 05/24/20 Unknown Rx Pack, 21 Tabs)] Tiotropium [place] [Spiriva 1 inh IH BID #1 mist.inhal 05/24/20 Unknown Rx Respimat] Allergies Allergy/AdvReac Type Severity Reaction Status Date / Time Penicillins AdvReac Unknown Verified 08/05/19 18:25 ED Review of Systems ROS: Stated complaint: DIFF BREATHING Other details as noted in HPI Comment: All other systems reviewed and negative Constitutional: denies: fever Respiratory: shortness of breath. denies: cough, wheezing Cardiovascular: denies: chest pain Gastrointestinal: denies: abdominal pain, nausea, vomiting Neurological: denies: headache ED Past Medical Hx - Past Medical History Previous Medical History?: Yes Hx Hypertension: Yes Hx Renal Disease: No Hx Arthritis: Yes Hx Seizures: No Hx COPD: Yes Hx Dementia: Yes - Surgical History Past Surgical History?: Yes Hx Cholecystectomy: No Hx Appendectomy: No Additional Surgical History: PROSTATE - Social History Smoking Status: Former Smoker Substance Use Type: None - Medications Home Medications: Home Medications Medication Instructions Recorded Confirmed Last Taken Type ALBUTEROL NEB's [Proventil 0.083% 2.5 mg IH TID PRN #30 neb 08/05/19 11/08/19 Unknown Rx NEBS] Albuterol Mdi (or & Nicu Only) 2 puff IH QID PRN #8.5 gram 08/05/19 11/08/19 Unknown Rx [ProAir HFA Inhaler] Inhaler, Assist Devices [Space 1 each MC PRN PRN #1 spacer 08/05/19 11/08/19 Unknown Rx Chamber Plus] Ipratropium (Nf) [Atrovent HFA 2 puff IH Q6HR #1 inha 08/05/19 11/08/19 Unknown Rx [id number]/PUFF] Amantadine 10 mg PO DAILY 11/06/19 11/06/19 1 Day Ago History ~11/05/19 10 Dulcolax tab 100 mg PO DAILY 11/06/19 11/06/19 1 Day Ago History ~11/05/19 100 mg Melatonin 3 mg PO QHS 11/06/19 11/06/19 1 Day Ago History ~11/05/19 3 Spiriva Respimat 2.5 mg INNOSTRIL DAILY 11/06/19 11/06/19 1 Day Ago History ~11/05/19 2.5 Symbicort 160-4.5 Mcg Inhaler 4.5 mcg INNOSTRIL BID 11/06/19 11/06/19 1 Day Ago History ~11/05/19 2 puffs Vitamin E Cap 1,000 units PO DAILY MDD 1000 units 11/06/19 11/06/19 1 Day Ago History ~11/05/19 1000 units Budesonide/Formoterol Fumarate 2 inh IH BID #1 hfa.aer.ad 05/24/20 Unknown Rx [Symbicort 160-4.5 Mcg Inhaler] Doxycycline Hyclate [Doxycycline 100 mg PO Q12HR 7 Days #14 tab 05/24/20 Unknown Rx Hyclate TAB] Prednisone [predniSONE 5 mg (6-Day 5 mg PO .TAPER #1 tab.ds.pk 05/24/20 Unknown Rx Pack, 21 Tabs)] Tiotropium [place] [Spiriva 1 inh IH BID #1 mist.inhal 05/24/20 Unknown Rx Respimat] ED Physical Exam - General Limitations: No Limitations General appearance: alert, in no apparent distress, other (Frail, cachectic, speaking full sentences ) - Head Head exam: Present: atraumatic, normocephalic - Eye Eye exam: Present: normal appearance - ENT ENT exam: Present: mucous membranes moist - Neck Neck exam: Present: normal inspection - Respiratory Respiratory exam: Present: normal lung sounds bilaterally. Absent: respiratory distress - Cardiovascular Cardiovascular Exam: Present: regular rate, normal rhythm, normal heart sounds. Absent: systolic murmur, diastolic murmur, rubs, gallop - GI/Abdominal GI/Abdominal exam: Present: soft, normal bowel sounds. Absent: distended, tenderness, guarding, rebound - Rectal Rectal exam: Present: deferred - Extremities Exam Extremities exam: Present: normal inspection - Neurological Exam Neurological exam: Present: alert, other (Oriented to name and situation) - Psychiatric Psychiatric exam: Present: normal affect, normal mood - Skin Skin exam: Present: warm, dry, intact, normal color. Absent: rash ED Course Vital Signs 05/24/20 05/24/20 05/24/20 04:47 05:00 06:01 Temperature 97.9 F Pulse Rate 95 H Pulse Rate [ 102 H 95 H Anterior Bilateral Throughout] Respiratory 26 H Rate Respiratory 32 H 20 Rate [Anterior Bilateral Throughout] Blood Pressure 90/51 [right arm] O2 Sat by Pulse 99 Oximetry ED Medical Decision Making - Lab Data Result diagrams: 05/24/20 05:47 05/24/20 05:47 - Radiology Data Radiology results: report reviewed Chest radiograph: Findings of COPD, emphysema without acute process such as infiltrate or pneumothorax - Medical Decision Making Acute COPD exacerbation: Treated with magnesium, IV steroids, bronchodilator therapy in route. Treatment in the emergency department continued with bronchodilator therapy. I had extensive conversation via phone with she: Patient's daughter and caregiver. She had intended for her father to be evaluated at the [facility]. She spoke with his [place] patient advocate Parag in the [place] ER nurse to facilitate transport. It appeared that due to work of breathing, EMS diverted to the nearest hospital. Mr. Cross, at this time appears well. He is speaking full word sentences. He has clear breath sounds. No work of breathing. Oxygen saturation 99% on nasal cannula. Daughter requested prescriptions refill of both Symbicort and Spiriva. He did not receive his prescription via mail as of yet. He has missed a dose of Spiriva. Prescriptions provided: Symbicort, Spiriva, prednisone taper, doxycycline CBC chemistry lactic acid all within normal limits. Hypotensive reading upon arrival due to inappropriately sized cuff. Patient has a small arm. Repeat blood pressure hypertensive without intervention. Vital Signs - 24 hr 05/24/20 05/24/20 05/24/20 04:47 05:00 06:01 Temperature 97.9 F Pulse Rate 95 H Pulse Rate [ 102 H 95 H Anterior Bilateral Throughout] Respiratory 26 H Rate Respiratory 32 H 20 Rate [Anterior Bilateral Throughout] Blood Pressure 90/51 [right arm] O2 Sat by Pulse 99 Oximetry 05/24/20 07:36 Temperature Pulse Rate 80 Pulse Rate [ Anterior Bilateral Throughout] Respiratory 17 Rate Respiratory Rate [Anterior Bilateral Throughout] Blood Pressure 142/68 [right arm] O2 Sat by Pulse 97 Oximetry Critical care attestation.: If time is entered above; I have spent that time in minutes in the direct care of this critically ill patient, excluding procedure time. ED Disposition Clinical Impression: COPD with acute exacerbation Disposition: DC-01 TO HOME OR SELFCARE Is pt being admited?: No Does the pt Need Aspirin: No Condition: Stable Instructions: Chronic Obstructive Pulmonary Disease (ED) Prescriptions: Doxycycline Hyclate [Doxycycline Hyclate TAB] 100 mg PO Q12HR 7 Days #14 tab Prednisone [predniSONE 5 mg (6-Day Pack, 21 Tabs)] 5 mg PO .TAPER #1 tab.ds.pk Tiotropium [place] [Spiriva Respimat] 1 inh IH BID #1 mist.inhal Budesonide/Formoterol Fumarate [Symbicort 160-4.5 Mcg Inhaler] 2 inh IH BID #1 hfa.aer.ad Referrals: DONNA CARTWRIGHT MD [Primary Care Provider] - 3-5 Days
[2020-05-24 09:36] VITALS: BP 110/47
== END 2020-05-24 09:34 | disposition home or self-care (01) ==
LOC: ED 04:37
DX: J45.901 Unspecified asthma with (acute) exacerbation (principal); I10 Essential (primary) hypertension; M19.90 Unspecified osteoarthritis, unspecified site; Z79.899 Other long term (current) drug therapy
CPT/HCPCS: 36415; 71045; 80048; 82140; 85025; 87040; 93005; 94640; 94644; 99284; J7030